=== PATIENT | male | born 1945 | race Asian ===

== ENCOUNTER → 2024-06-28 13:35 | Outpatient (REF) | payer MEDICARE, BC, SELFPAY ==
[2024-06-28 14:36] LABS: % Basophils 0.7 % (0-2); % Eosinophils 6.5 % (0-6); % Immature Granulocytes 0.2 % (0-0.5); % Lymphocytes 22.7 % (20.5-51.1); % Monocytes 8.1 % (1.7-9.3); % Neutrophils 61.8 % (42.2-75.2); Absolute Eosinophils 0.4 10^3/uL (0-0.7); Absolute Lymphocytes 1.4 10^3/uL (1.2-3.4); Absolute Monocytes 0.5 10^3/uL (0.1-0.6); Absolute Neutrophils 3.7 10^3/uL (1.4-6.5); Hematocrit 37.1 % (39.0-52.0); Hemoglobin 11.9 g/dL (13.0-18.0); Mean Corp Hgb Conc. 32.1 g/dL (33.0-37.0); Mean Corpuscular Hgb 26.9 pg (27.0-31.0); Mean Corpuscular Volume 83.7 fL (80.0-94.0); Nucleated Red Blood Cells % 0 % (-); Platelet Count 155 10^3/uL (130-400); Red Blood Cell Count 4.43 10^6/uL (4.70-6.10); Red Cell Dist. Width 15.1 % (11.5-14.5)
[2024-06-28 15:01] LABS: HDL Cholesterol 56 mg/dl; LDL Cholesterol, Calculated 61 mg/dl; Total Cholesterol 132 mg/dl (50-199); Triglyceride 79 mg/dl (10-149); Very Low Density Lipoprotein 15 mg/dl (0-30)
[2024-06-29 09:46] LABS: Glycohemoglobin (HgbA1c) 6.3 % (4.0-5.6)
== END ==
LOC: OLABBH 13:35
PROVIDERS: ATTENDING PHYSICIAN Family Medicine
DX: E78.5 Hyperlipidemia, unspecified (principal); E11.8 Type 2 diabetes mellitus with unspecified complications; R93.1 Abnormal findings on diagnostic imaging of heart and coronary circulation; I25.10 Atherosclerotic heart disease of native coronary artery without angina pectoris; J10.00 Influenza due to other identified influenza virus with unspecified type of pneumonia; I63.9 Cerebral infarction, unspecified
CPT/HCPCS: 36415; 80061; 83036; 85025

== ENCOUNTER → 2024-07-20 08:00 | Outpatient (REF) | payer MEDICARE, BC, SELFPAY ==
[2024-07-20 17:25] LABS: Urine Albumin 3+ (Neg - Trace); Urine Bilirubin Negative (Negative); Urine Character Clear (Clear); Urine Color Yellow; Urine Glucose Negative (Negative); Urine Ketone Negative (Negative); Urine Leukocyte 1+ (Negative); Urine Nitrite Negative (Negative); Urine Occult Blood Negative (Negative); Urine Specific Gravity 1.015 (<1.030); Urine Urobilinogen Negative (Neg - 1+); Urine pH 6.5 (5.0-9.0)
[2024-07-20 17:32] LABS: Urine Calcium Oxalate Crystals Present; Urine Mucus Few; Urine Red Blood Cell 0-2 /HPF (0-2); Urine Squamous Cell 0-2 /LPF (Few)
[2024-07-20 17:33] LABS: Urine Bacteria Moderate (Negative)
== END ==
LOC: OLABBH 08:00
PROVIDERS: ATTENDING PHYSICIAN Family Medicine
DX: N39.0 Urinary tract infection, site not specified (principal)
CPT/HCPCS: 81003; 81015; 87086

== ENCOUNTER 2024-09-09 23:46 | Observation (INO) | payer MEDICARE, BC, SELFPAY ==
[2024-09-09 19:53] VITALS: BP 121/67
[2024-09-09 19:56] VITALS: BP 121/67
[2024-09-09 20:00] VITALS: BP 114/69
[2024-09-09 20:26] LABS: Hematocrit 35.1 % (39.0-52.0); Hemoglobin 11.7 g/dL (13.0-18.0); Mean Corp Hgb Conc. 33.3 g/dL (33.0-37.0); Mean Corpuscular Volume 83.2 fL (80.0-94.0); Nucleated Red Blood Cells % 0 % (-); Platelet Count 180 10^3/uL (130-400); Red Cell Dist. Width 13.8 % (11.5-14.5)
--- NOTE | 2024-09-09 20:36 | ED.GENMED ---
History of Present Illness
General
Chief Complaint: Change Level of Consciousness
Time Seen by Provider: 09/09/24 20:27
History of Present Illness
History of Present Illness:
Patient presents to the emergency department with altered mental status. He is a 79-year-old male with a history of dementia, prior intracranial hemorrhage, seizures, who presents after change in mental status. He was in his baseline state of
health, sitting with his friends at the [facility], when he suddenly slumped over to the side and started drooling. There is no shaking. Patient was staring off into space. His notes this is how he was during a prior seizure. He has
had 2 seizures since his intracranial hemorrhage last year. He is on Keppra 250 mg in the morning and 500 mg at night. There is been no change to his medications otherwise. Patient is confused and unable to provide any history
Phy Exam
Physical Exam
Physical Exam:
GENERAL APPEARANCE: Chronically ill-appearing
EYES lids/conjunctiva normal
EARS/NOSE/THROAT tacky mucous membranes
HEAD/NECK normocephalic atraumatic, neck is supple.
RESPIRATORY respiratory effort normal, speaks in full sentences, no accessory muscle use. Lungs clear to auscultation without rhonchi, wheezes, rales
CARDIAC Regular rate and rhythm, no edema.
ABDOMINAL Soft, ND/NT. No pulsatile masses on exam, rebound tenderness, Rashid sign or pain over Mcburney's point.
MUSCLES/EXTREMITIES No abnormal range of motion, no swelling.
SKIN Warm, pink and dry. No rashes
NEUROLOGICAL he is awake but tired, easily arousable. Patient moves all extremities. There is no facial droop. Patient is not oriented.
Course
Orders/Labs/Results
Orders:
Orders
09/09/24 20:00
EKG [Electrocardiogram (*1)] Urgent
Reason for Study: Syncope
EKG- Treatment ONCE
09/09/24 20:18
CMP [Comprehensive Metabolic Panel] Urgent
Complete Blood Count/With Diff Urgent
09/09/24 20:35
Urinalysis Reflex To Culture Urgent
0.9% Sodium Chloride 1000 ml [Nss] 1,000 ml IV BOLUS
Levetiracetam Injectable [Keppra] 1,000 mg IV NOW STA
09/09/24 20:36
CT Head W/o Iv Contrast Urgent
Comment:
Reason For Exam: altered mental status
Abnormal Lab Results
09/09/24
20:18
RBC 4.22 L 10^6/uL
(4.70-6.10)
Hgb 11.7 L g/dL
(13.0-18.0)
Hct 35.1 L %
(39.0-52.0)
MPV 11.0 H fL
(7.4-10.4)
Absolute Monos (auto) 0.7 H 10^3/uL
(0.1-0.6)
Glucose 157 H mg/dl
(70-99)
Alkaline Phosphatase 36 L U/L
(38-126)
Total Protein 5.8 L g/dl
(6.3-8.2)
09/09/24 20:18
09/09/24 20:18
Vital Signs
Initial and Last Documented VS:
Initial Vital Signs
Temp Pulse Resp BP Pulse Ox
97.8 F 73 18 121/67 96
09/09/24 19:53 09/09/24 19:53 09/09/24 19:53 09/09/24 19:53 09/09/24 19:53
Last Documented Vital Signs
Temp Pulse Resp BP Pulse Ox
97.8 F 81 18 114/69 99
09/09/24 19:53 09/09/24 22:45 09/09/24 22:57 09/09/24 20:00 09/09/24 22:45
*Pulse Oximetry
SaO2: 96
Oxygen Mode of Delivery: Room air
Patient hypoxic: no
*Critical Care Note
Total Time (30-74mins, 75-104mins- exclusive of procedures): Not Applicable
ED Attending Note
ED Attending Note
ED Attending Note:
Patient with a history of intracranial hemorrhage, seizures, dementia presents with altered mental status with acute episode of unresponsiveness. notes this is similar to prior seizure though there was no shaking. He did appear to be
postictal on arrival. He had some improvement in his mental status while in the emergency department but not back to baseline. Labs and head CT are reassuring. Will keep for observation. Given IV antiepileptic. No evidence of infection or
meningitis clinically.
-
Portions of this chart may have been created with voice recognition software.� Occasional wrong word or��sound alike� substitutions may have occurred due to the inherent limitations of voice recognition software.
Discharge Plan
Departure
Patient Disposition: Admit
Date of Disposition: 09/09/24
Time of Disposition: 22:21
Presentation/result/management discussed w/ accepting MD/DO: Hospitalist
Discharge Problem:
Seizure, Acute alteration in mental status
Prescriptions:
No Action
metformin 500 mg Tablet
500 mg PO BID
loperamide 2 mg Capsule
2 mg PO Q4H PRN (Reason: loose stools)
levetiracetam 250 mg Tablet
250 mg PO DAILY
levetiracetam 250 mg Tablet
500 mg PO HS
ascorbate calcium (vitamin C) 500 mg Tablet
100 mg PO USEASDIRECTD
Rx Instructions:
Take every MWF
calcium carbonate [Calcium Antacid] 200 mg calcium (500 mg) Tablet,Chewable
400 mg PO Q4 PRN (Reason: upset stomach )
losartan 25 mg Tablet
25 mg PO DAILY PRN (Reason: SBP>150)
Rx Instructions:
Take daily when SBP is over 150
mirtazapine 15 mg Tablet
7.5 mg PO HS
rosuvastatin 20 mg Tablet
20 mg PO DAILY
cholecalciferol (vitamin D3) [Vitamin D3] 25 mcg (1,000 unit) Tablet
25 mcg PO USEASDIRECTD
Rx Instructions:
Take every MWF
Vitamin B12
5,000 mcg PO USEASDIRECTD
Rx Instructions:
Take every MWF
Referrals:
UNKNOWN - PT DOES,NOT KNOW [Family Provider]
Interventions
Interventions:
*Risk Screen - Suicide Last Done: 09/09/24 21:39
*General Assessment Last Done: 09/09/24 19:53
*Neglect/Abuse Screening Last Done: 09/09/24 19:53
*ED- Fall Risk Assessment Last Done: 09/09/24 20:01
*ED COVID-19 Vaccine History Last Done: 09/09/24 19:53
ED- Cardiac Assessment Last Done: 09/09/24 22:16
ED- Neurological Assessment Last Done: 09/09/24 22:16
ED-Psychological Assessment Last Done: 09/09/24 22:16
ED- Pulmonary Assessment Last Done: 09/09/24 22:16
Discharge Date and Time
Print Language: BELARUSIAN
[2024-09-09 20:54] LABS: ALT (SGPT) 14 U/L (0-50); AST (SGOT) 19 U/L (17-59); Albumin 3.7 g/dl (3.5-5.0); Alkaline Phosphatase 36 U/L (38-126); Blood Urea Nitrogen 19 mg/dl (9-20); Calcium 9.5 mg/dl (8.4-10.2); Carbon Dioxide 26 mmol/L (22-30); Chloride 100 mmol/L (98-107); Glucose 157 mg/dl (70-99); Potassium 3.7 mmol/L (3.5-5.1); Sodium 135 mmol/L (135-145); Total Protein 5.8 g/dl (6.3-8.2); eGFR > 60.00
[2024-09-09] MEDS: KEPPRA 1000 MG IV (21:01)
[2024-09-09] MEDS: NSS 1000 IV (21:01)
[2024-09-09 23:00] VITALS: BP 128/81
--- NOTE | 2024-09-09 23:21 | HPS.HSE ---
Family Physician
-
Family Physician: NOT KNOW UNKNOWN - PT DOES
Chief Complaint
-
Altered mental status
History of Present Illness
This is a 79-year-old with past medical history of intracranial hemorrhage, CVA, dementia, seizures, hyperlipidemia, wnm-tqabwng-zirgvuoed diabetes who presents from senior care facility for episode of unresponsiveness.
He was sitting outside with a group of friends when he suddenly slumped over to the side and staring off into space unresponsive. There was no shaking. There was no bowel incontinence. He was found with wet underwear on arrival in the emergency
department. Thereafter he seems to have some mental depression consistent with a postictal state. Spouse reported that he had similar prior episodes of seizures but reports that had 2 prior episode where his somnolent but arousable.
Here in the emergency department the patient is arousable, blood pressure is 114/69 temperature 91.8 pulse 81 satting 99% on room air. ECG shows sinus rhythm for degree AV block at a rate of [address] or T wave changes. CT of the
head was nonacute.
CBC was reassuring without any acute changes. Electrolytes were all normal. BUN/creatinine were normal. LFTs normal. Was normal.
Medical History
Past Medical History
Past Medical History: Reports Dementia, NIDDM and Seizures
Past Surgical History: Reports Other
Social History
Tobacco: Non-smoker
Alcohol: None
Drug: None
Living: Shelter
Family History
Family History: Not pertinent
Allergies / Home Medications
Allergies reflects when Allergies were last updated in [employer].
Home Medications with original date entered in [employer]
Allergy/Medication List:
Allergies
Allergy/AdvReac Type Severity Reaction Status Date / Time
atorvastatin Allergy Unknown Verified 09/09/24 20:13
buspirone Allergy Unknown Verified 09/09/24 20:13
donepezil (From Aricept) Allergy Unknown Verified 09/09/24 20:13
metoprolol Allergy Unknown Verified 09/09/24 20:13
sertraline Allergy Unknown Verified 09/09/24 20:13
Home Medications
Vitamin B12 5,000 mcg PO USEASDIRECTD 09/09/24
ascorbate calcium (vitamin C) 500 mg tablet 100 mg PO USEASDIRECTD 09/09/24
calcium carbonate (Calcium Antacid) 400 mg PO Q4 PRN upset stomach 09/09/24
cholecalciferol (vitamin D3) 25 mcg (1,000 unit) tablet (Vitamin D3) 25 mcg PO USEASDIRECTD 09/09/24
levetiracetam 250 mg tablet 250 mg PO DAILY 09/09/24
levetiracetam 250 mg tablet 500 mg PO HS 09/09/24
loperamide 2 mg capsule 2 mg PO Q4H PRN loose stools 09/09/24
losartan 25 mg tablet 25 mg PO DAILY PRN SBP>150 09/09/24
metformin 500 mg tablet 500 mg PO BID 09/09/24
mirtazapine 15 mg tablet 7.5 mg PO HS 09/09/24
rosuvastatin 20 mg tablet 20 mg PO DAILY 09/09/24
Review of Systems
-
Unable to obtain full review of systems at this time due to: Dementia
Physical Exam
Vital Signs
Vital Signs
Temp Pulse Resp BP Pulse Ox
97.8 F 81 18 114/69 99
09/09/24 19:53 09/09/24 22:45 09/09/24 22:57 09/09/24 20:00 09/09/24 22:45
Physical Exam
General: No Apparent Distress
HEENT: NormoCephalic, Moist mucous membranes and Atraumatic
Respiratory: Clear
Cardiac: S1/S2 and Regular Rhythm; No Murmur or Rub
GI: Soft, Non Tender, Non Distended and Normal Bowel Sounds; No Organomegaly
Rectal: Deferred by Provider
Musculoskeletal: No Clubbing, No Cyanosis and No Edema
Skin: No Rash
Neuro: Nonfocal/grossly intact and Other (Arousable, responds to name and able to say he is name. He is able to respond and say does not remember many things and does not remember where he is currently. He can follow simple commands.); No Oriented
Hematologic/Lymphatic: No Lymphadenopathy
Psych: Calm
Laboratory Results
-
09/09/24 20:18
09/09/24 20:18
Laboratory Results
Total Bilirubin 0.3 mg/dl (0.2-1.3) 09/09/24 20:18
AST 19 U/L (17-59) 09/09/24 20:18
ALT 14 U/L (0-50) 09/09/24 20:18
Alkaline Phosphatase 36 U/L (38-126) L 09/09/24 20:18
Data Reviewed
-
CT Scan: Report Reviewed by me
Medical Tests (Nuc Med, Echo, EKG etc): Image Personally Visualized and interpreted
Lab Data: Labs Reviewed by me
Old Records: Reviewed
Impression/Plan
-
IMPRESSION:
79-year-old with history of seizures on Keppra, history of intracranial hemorrhage, CVA, depression who presents to the emergency department following episode of unresponsiveness. Patient slumped in his chair and became unresponsive staring into
the distance. Since then he has been more sedated with an apparent postictal presentation. There was no obvious for bladder or bowel incontinence. There was no shaking. He is currently easily arousable and can follow very simple commands which
is similar to his baseline. He still somewhat somnolent but spouse reports that he usually goes to bed at this time. His labs are reassuring. CT of the head shows nothing acute. Urine is pending. There was no changes in medications to prompt
changes in his seizure threshold. No history of cardiac disease and not on any specific cardiac medications concerning for syncope. No signs of acute infection.
PLAN:
Unresponsiveness -suspect had a possible seizure with postictal state vs syncopal episode but not currently in status. He is sleepy but easily aroused and responds to commands. No acute intracranial process. Known h/o seizures.
- admit to telemetry observation for syncope
- s/p IV keppra in ED, continue oral keppra 500 hs, 250 daily
- lorazepam prn generalized seizure
- Known seizure and no evidence of status, hold off on EEG for now
- u/a pending
- check orthostatics in am
- s/p IV fluids, continue home antihypertensives
DVT PPX - lovenox sq
Code status - DNR
[2024-09-10] VITALS: BP 167/84
[2024-09-10 00:28] LABS: Urine Character Clear (Clear)
[2024-09-10 01:20] VITALS: BP 164/92
--- NOTE | 2024-09-10 02:04 | PTCARENOTE ---
Pt arrived to floor via stretcher from the ED. Pt arousable to voice, AAox1- able to answer simple questions without difficulty. Pt very drowsy and lethargic. Pt unable to recall reason for hospitalization. Pt denies any complaints of pain or
discomfort. HR in the 90's in NSR with first degree AV block on the monitor. POX 97% on RA. lungs dec t/o. Upon arrival to floor pt had #21CC in place, visibly extremely too small for pt with only the top on penis shoved into CC, with noted
discoloration to tip of penis. CC removed, skin tear noted in foreskin. NO CC in place at this time. Pt inc of bowel, deandra care provided. Right AC INT capped. Pt positioned per comfort. Bed alarm in place. Call hawkins in reach. Will continue to
monitor.
[2024-09-10 03:57] VITALS: BP 134/87
[2024-09-10 07:12] VITALS: BP 166/90
[2024-09-10] MEDS: KEPPRA 250 MG PO (07:52)
[2024-09-10] MEDS: GLUCOPHAGE 500 MG PO (07:52)
[2024-09-10] MEDS: CRESTOR 20 MG PO (07:52)
[2024-09-10] MEDS: NOVOLOG FLEXPEN-LOW RESISTANCE SC (07:54)
[2024-09-10 07:55] LABS: Glucose - Point of Care 99 mg/dl (70-99)
[2024-09-10 08:36] VITALS: BP 134/93; BP 138/83; BP 157/88; PULSE 79; PULSE 88; PULSE 93
[2024-09-10 09:00] LABS: Blood Urea Nitrogen 14 mg/dl (9-20); Calcium 9.2 mg/dl (8.4-10.2); Carbon Dioxide 27 mmol/L (22-30); Chloride 103 mmol/L (98-107); Glucose 102 mg/dl (70-99); Potassium 4.4 mmol/L (3.5-5.1); Sodium 136 mmol/L (135-145); eGFR > 60.00
[2024-09-10 09:17] LABS: Hematocrit 36.7 % (39.0-52.0); Hemoglobin 12.2 g/dL (13.0-18.0); Mean Corp Hgb Conc. 33.2 g/dL (33.0-37.0); Mean Corpuscular Volume 82.8 fL (80.0-94.0); Red Cell Dist. Width 13.7 % (11.5-14.5)
--- NOTE | 2024-09-10 09:45 | PTCARENOTE ---
pt awake. responds to name. answering simple question. states no to pain. able to move all ext. oriented to self knows he is in a hospital
--- NOTE | 2024-09-10 10:50 | W.PN.HOSP.TC ---
Addendum entered and electronically signed by Terry Dias DO 09/10/24 11:10:
I spoke with neurologist Dr Kenny, okay to discharge today. Outpatient follow-up.
Original Note:
Today's Communication/Plan
-
Neurology consult
Assessment / Plan
Assessment / Plan
Gen-awake, alert, NAD
HEENT-NC, AT, anicteric, clear oral mm
Neck-supple
CV-reg, no M, +S1/S2
Lungs-clear B/L
Abd-soft, NT, ND
Ext-no edema
Musculoskeletal-no cyanosis, clubbing
Skin-warm and dry
Neuro-grossly non-focal
Psych-calm, cooperative
Acute encephalopathy -differential diagnosis of seizure recurrence versus other etiology. Episode of slumping over to the side, drooling, staring off into space.
Mental status appears back to baseline.
CT head on admission negative.
Will consult neurology.
History of seizures -after ICH. On Keppra 250 mg daily, 500 mg nightly.
History of ICH
DM2 without hyperglycemia -on metformin prior to admission.
Glucose 102 this morning.
Essential hypertension -blood pressure elevated this morning. Will resume losartan.
hyperlipidemia -rosuvastatin.
Dementia
DNR
updated at the bedside.
Anticipated Discharge: Within 24 hours
Subjective/Interval History
-
Date of Service: September 10, 2024
Patient seen and examined. No complaints.
Objective Data
-
Labs:
Laboratory Results
09/10/24
07:36
WBC 7.9
Hgb 12.2 L
Hct 36.7 L
Plt Count
Sodium 136
Potassium 4.4
Chloride 103
Carbon Dioxide 27
BUN 14
Creatinine 0.6 L
Glucose 102 H
Calcium 9.2
Vital Signs:
Vital Signs
Temp Pulse Resp BP Pulse Ox
97.6 F 82 14 166/90 100
09/10/24 07:12 09/10/24 07:12 09/10/24 07:12 09/10/24 07:12 09/10/24 07:12
I&O
09/09/24 09/10/24 09/11/24
06:59 06:59 06:59
Intake Total 1000 / 1000
Output Total 400 / 400
Balance 600 / 600
Review of Systems
-
Unable to obtain full review of systems at this time due to: Dementia
History Source: Patient
All other systems: Reviewed and negative
--- NOTE | 2024-09-10 10:53 | CON.NEURO ---
Neuro Assessment/Plan
Assessment
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
Plan
Maintain levetiracetam 250 mg in the morning and 500 mg at bedtime
Initiate lamotrigine 25 mg twice a day as the patient has been intolerant to higher doses of levetiracetam
No indication at this time patient would benefit from EEG
May check orthostatic blood pressures to ensure no variability which might be producing some symptomatology
Will follow as needed. Patient should follow with his usual outpatient neurologist.
Consultation
Order
Date of Consultation: 09/10/24
Requesting Provider: Hospitalist
Reason for Consult: Seizure
Subjective/Objective
Subjective Data
Date of Service: September 10, 2024
Patient presented to this hospital's emergency department from his [facility] with an episode of recurrent, observed, change in mental status with the patient staring then becoming unresponsive. The patient did lose control of bladder but
not of bowel. There is no evidence of tongue biting at the time. Patient has a longstanding history of seizures for which she is evaluated by an outside neurologist. Prior dosing of levetiracetam produced agitation for which the patient had a
reduction in dosing. No known modifying factors to the patient's event.
The patient previously was diagnosed with dementia presumed to be secondary to alcohol overexposure.
We have no outside records for corroboration. Patient's history is entirely obtained after review of the patient's medical records and discussion with his at bedside. Patient himself is unable to provide his own medical history.
Objective Data
Vital Signs
Temp Pulse Resp BP Pulse Ox
36.4 C 82 14 166/90 100
09/10/24 07:12 09/10/24 07:12 09/10/24 07:12 09/10/24 07:12 09/10/24 07:12
Lab Results
09/10/24 07:36
09/10/24 07:36
Sodium 136 mmol/L (135-145) 09/10/24 07:36
Potassium 4.4 mmol/L (3.5-5.1) 09/10/24 07:36
BUN 14 mg/dl (9-20) 09/10/24 07:36
Glucose 102 mg/dl (70-99) H 09/10/24 07:36
Calcium 9.2 mg/dl (8.4-10.2) 09/10/24 07:36
Patient Allergies
atorvastatin Allergy (Verified 09/09/24 20:13)
Unknown
buspirone Allergy (Verified 09/09/24 20:13)
Unknown
donepezil (From Aricept) Allergy (Verified 09/09/24 20:13)
Unknown
metoprolol Allergy (Verified 09/09/24 20:13)
Unknown
sertraline Allergy (Verified 09/09/24 20:13)
Unknown
Review of Systems
-
Unable to obtain full review of systems at this time due to: Dementia
History Source: Patient
All other systems: Reviewed and negative
Physical Exam
-
General: No Apparent Distress and Appears Stated Age
Eyes: Round OU, Gumlog Conjunctivae and No Ptosis
HEENT: Anicteric and Moist Mucous Membranes
Neck: Full Range of Motion
Respiratory: No Dyspnea
Cardiac: No JVD
GI: Non-distended
Skin: Unremarkable
Extremities: No Clubbing, No Cyanosis and No Edema
Psych: Negative Intact Judgement/Insight
Extended Neurological Exam
Mood & Affect: Mood Unremarkable and Affect Unremarkable
Attention Span & Concentration: Awake, Alert and Interactive
Tremor: Hand Tremor Absent and Head Tremor Absent
Speech: Quality Unremarkable and Quantity Unremarkable
Cranial Nerve II: Left Eye: Pupillary Size Unremarkable and Visual Cardona Grossly Intact
Cranial Nerve II: Right Eye: Pupillary Size Unremarkable and Visual Cardona Grossly Intact
Cranial Nerves III, IV, : Extraocular Movement: Grossly Intact
Cranial Nerve VII: Facial Symmetry: Normal Facial Symmetry
Cranial Nerve VIII: Hearing: Unremarkable Hearing to Normal Conversational Volume
Cranial Nerve XI: Shoulder Shrug: Unremarkable
Touch Sensation: Unremarkable
Gait & Station: Unable to Assess
Data Reviewed
-
CT Head: Report Reviewed
Labs: Report Reviewed
Reviewed with: Physician and Family
Old Records: Summarized
Medications
-
Active Medications
Generic Name Dose Route Start Last Admin
Trade Name Freq PRN Reason Stop Dose Admin
Acetaminophen 650 mg 09/10/24 01:03
Acetaminophen 325 Mg Tablet PO 10/08/24 01:02
Q4HPRN PRN
mild pain/PEREZ/temp> 100.4F
Bisacodyl 10 mg 09/10/24 01:03
Bisacodyl 10 Mg Rectal Suppository RECTAL 10/08/24 01:02
[id number] PRN
constipation
Dextrose 12.5 grams 09/10/24 02:00
Dextrose 50% (0.5 Grams/Ml) 50 Ml Syringe IV 10/08/24 01:59
[id number] PRN
hypoglycemia
Protocol
Enoxaparin Sodium 40 mg 09/10/24 18:00
Enoxaparin Sodium 40 Mg/0.4 Ml Syringe SC 10/08/24 17:59
QPM REGINA
Glucagon 1 mg 09/10/24 02:00
Glucagon 1 Mg Vial IM 10/08/24 01:59
PRN PRN
hypoglycemia - no IV access
Protocol
Insulin Aspart 0 units 09/10/24 07:30 09/10/24 07:54
Insulin Aspart Low Resistance 300 Units/3 Ml Pen.Injctr SC 10/08/24 07:29 Not Given
AC REGINA
Protocol
Levetiracetam 250 mg 09/10/24 08:00 09/10/24 07:52
Levetiracetam 250 Mg Regular Release Tablet PO 10/08/24 07:59 250 mg
DAILY REGINA Administration
Levetiracetam 500 mg 09/10/24 22:00
Levetiracetam 250 Mg Regular Release Tablet PO 10/08/24 21:59
HS REGINA
Loperamide HCl 2 mg 09/10/24 01:03
Loperamide 2 Mg Capsule PO 10/08/24 01:02
Q4H PRN
loose stools
Losartan Potassium 25 mg 09/10/24 01:03
Losartan 25 Mg Tablet PO 10/08/24 01:02
DAILY PRN
SBP>150
Metformin HCl 500 mg 09/10/24 08:00 09/10/24 07:52
Metformin 500 Mg Regular Release Tablet PO 10/08/24 07:59 500 mg
BID AT 0800,1700 REGINA Administration
Mirtazapine 7.5 mg 09/10/24 22:00
Mirtazapine 7.5 Mg Regular Release Tablet PO 10/08/24 21:59
HS REGINA
Ondansetron HCl 4 mg 09/10/24 01:03
Ondansetron 4 Mg/2 Ml Vial IV 10/08/24 01:02
Q6HPRN PRN
nausea and vomiting
Polyethylene Glycol 17 grams 09/10/24 01:03
Polyethylene Glycol Powder 17 Grams Packet PO 10/08/24 01:02
DAILYPRN PRN
constipation
Rosuvastatin Calcium 20 mg 09/10/24 08:00 09/10/24 07:52
Rosuvastatin (Crestor) 20 Mg Tablet PO 10/08/24 07:59 20 mg
DAILY REGINA Administration
Senna/Docusate Sodium 1 tablet 09/10/24 01:03
Docusate W/Senna (Lauren-Colace) Tablet PO 10/08/24 01:02
BIDPRN PRN
constipation
Sodium Chloride 0 flush 09/10/24 02:00
Sodium Chloride 0.9% (Flush) Syringe IV 10/08/24 01:59
PER PROTOCOL REGINA
Home Medications
�Medication �Instructions �Recorded
Vitamin B12 5,000 mcg PO USEASDIRECTD 09/09/24
Supplement
ascorbate calcium (vitamin C) 500 100 mg PO USEASDIRECTD Supplement 09/09/24
mg tablet
calcium carbonate (Calcium Antacid) 400 mg PO Q4 PRN upset stomach 09/09/24
cholecalciferol (vitamin D3) 25 25 mcg PO USEASDIRECTD Supplement 09/09/24
mcg (1,000 unit) tablet (Vitamin
D3)
levetiracetam 250 mg tablet 250 mg PO DAILY Seizures 09/09/24
levetiracetam 250 mg tablet 500 mg PO HS Seizures 09/09/24
loperamide 2 mg capsule 2 mg PO Q4H PRN loose stools 09/09/24
losartan 25 mg tablet 25 mg PO DAILY PRN SBP>150 09/09/24
metformin 500 mg tablet 500 mg PO BID Diabetes 09/09/24
mirtazapine 15 mg tablet 7.5 mg PO HS Neurological Condition 09/09/24
rosuvastatin 20 mg tablet 20 mg PO DAILY High Cholesterol 09/09/24
Past History
Past History
ED Past Medical History: Hypercholesterolemia, Seizures and Other (dementia, COVID-19)
ED Past Surgical History: None
Social History
Alcohol: Chronic alcoholic
Personal:
Living: correction
Employment: Retired
Family History
Family History: Other (Reviewed and non-contributory)
--- NOTE | 2024-09-10 11:14 | W.DS.TRANS ---
DC Summary - Director Of Cardiology Service Line
-
Discharge Instructions:
Discharge Diagnosis/Procedures Recurrent seizures
Diet Diabetic, Carb Controlled
Activity As tolerated
Driving Restrictions No driving
Bathing Restrictions None
Instructions:
Stand-Alone Forms:
Changes to Home Medications: No
Discharge Medications:
DC Medications w/original date entered in [employer]
Vitamin B12 5,000 mcg PO USEASDIRECTD Supplement 09/09/24
ascorbate calcium (vitamin C) 500 mg tablet 100 mg PO USEASDIRECTD Supplement 09/09/24
calcium carbonate (Calcium Antacid) 400 mg PO Q4 PRN upset stomach 09/09/24
cholecalciferol (vitamin D3) 25 mcg (1,000 unit) tablet (Vitamin D3) 25 mcg PO USEASDIRECTD Supplement 09/09/24
levetiracetam 250 mg tablet 250 mg PO DAILY Seizures 09/09/24
levetiracetam 250 mg tablet 500 mg PO HS Seizures 09/09/24
loperamide 2 mg capsule 2 mg PO Q4H PRN loose stools 09/09/24
losartan 25 mg tablet 25 mg PO DAILY PRN SBP>150 09/09/24
metformin 500 mg tablet 500 mg PO BID Diabetes 09/09/24
mirtazapine 15 mg tablet 7.5 mg PO HS Neurological Condition 09/09/24
rosuvastatin 20 mg tablet 20 mg PO DAILY High Cholesterol 09/09/24
lamotrigine 25 mg tablet 25 mg PO BID 14 days #60 tabs 09/10/24
Home Medication Changes
Pending Results: No
[2024-09-10 11:23] VITALS: BP 153/56
--- NOTE | 2024-09-10 11:50 | CM ---
Alert awake confused patient that lives at [facility] . Spoke with at bedside she said he lives at [facility] with assisted living. He uses [facility]. Spoke with Anna [facility] RN she is aware he had med changes and will be returning
today. She said they have no van service today.Pt confused and needs ambulance . Medical nec form completed.As per [facility] pharmacy is [facility] [place] . notified pharmacy changed to preferred.
SIBLEY letter reviewed with .TOÑITO signed on chart. agrees with return to [facility].
[facility]
Pharmacy [facility] [place]
PCP Dr Bailey
PLAN return to [facility] report [phone]
[2024-09-10 11:56] LABS: Glucose - Point of Care 162 mg/dl (70-99)
[2024-09-10] MEDS: NOVOLOG FLEXPEN-LOW RESISTANCE 1 UNITS SC (13:02)
[2024-09-10] MEDS: LAMICTAL 25 MG PO (13:09)
== END 2024-09-10 15:15 | disposition home or self-care (01) ==
LOC: 4 EAST ACU 23:46
PROVIDERS: Emergency Medicine; ADMITTING PHYSICIAN Internal Medicine; ATTENDING PHYSICIAN Hospitalist; CONSULT PHYSICIAN Psychiatry & Neurology Neurology; EMERGENCY PHYSICIAN Emergency Medicine
DX: G93.49 Other encephalopathy (principal); R55 Syncope and collapse; R41.82 Altered mental status, unspecified; R56.9 Unspecified convulsions; F03.C3 Unspecified dementia, severe, with mood disturbance; F32.A Depression, unspecified; E11.65 Type 2 diabetes mellitus with hyperglycemia; I10 Essential (primary) hypertension; E78.00 Pure hypercholesterolemia, unspecified; Z79.84 Long term (current) use of oral hypoglycemic drugs; Z79.899 Other long term (current) drug therapy; Z88.8 Allergy status to other drugs, medicaments and biological substances; Z66 Do not resuscitate; Z86.73 Personal history of transient ischemic attack (TIA), and cerebral infarction without residual deficits; Z86.16 Personal history of COVID-19
CPT/HCPCS: 70450; 80048; 80053; 81003; 82962; 85025; 85027; 87070; 93005; 96360; 96374; 99285; G0378

== ENCOUNTER → 2024-11-14 11:36 | Outpatient (REF) | payer MEDICARE, BC, SELFPAY ==
[2024-11-14 13:21] LABS: Blood Urea Nitrogen 13 mg/dl (9-20); Calcium 8.8 mg/dl (8.4-10.2); Carbon Dioxide 29 mmol/L (22-30); Chloride 105 mmol/L (98-107); Glucose 96 mg/dl (70-99); Potassium 4.1 mmol/L (3.5-5.1); Sodium 137 mmol/L (135-145); eGFR > 60.00
[2024-11-14 13:53] LABS: Glycohemoglobin (HgbA1c) 6.2 % (4.0-5.6)
== END ==
LOC: OLABBH 11:36
PROVIDERS: ATTENDING PHYSICIAN Family Medicine
DX: E11.9 Type 2 diabetes mellitus without complications (principal)
CPT/HCPCS: 36415; 80048; 83036

== ENCOUNTER → 2024-11-29 11:14 | Outpatient (REF) | payer MEDICARE, BC, SELFPAY ==
[2024-11-29 13:10] LABS: Hematocrit 40.7 % (39.0-52.0); Hemoglobin 13.1 g/dL (13.0-18.0); Mean Corp Hgb Conc. 32.2 g/dL (33.0-37.0); Mean Corpuscular Volume 83.9 fL (80.0-94.0); Nucleated Red Blood Cells % 0 % (-); Platelet Count 35 10^3/uL (130-400); Red Cell Dist. Width 14.3 % (11.5-14.5)
== END ==
LOC: OLABBH 11:14
PROVIDERS: ATTENDING PHYSICIAN Family Medicine
DX: E11.9 Type 2 diabetes mellitus without complications (principal)
CPT/HCPCS: 36415; 85025

== ENCOUNTER → 2024-11-30 10:09 | Outpatient (REF) | payer MEDICARE, BC, SELFPAY ==
[2024-11-30 11:33] LABS: ALT (SGPT) 12 U/L (0-50); AST (SGOT) 19 U/L (17-59); Albumin 3.7 g/dl (3.5-5.0); Alkaline Phosphatase 39 U/L (38-126); Blood Urea Nitrogen 11 mg/dl (9-20); Calcium 9.3 mg/dl (8.4-10.2); Carbon Dioxide 27 mmol/L (22-30); Chloride 104 mmol/L (98-107); Glucose 106 mg/dl (70-99); Potassium 4.0 mmol/L (3.5-5.1); Sodium 133 mmol/L (135-145); Total Protein 6.0 g/dl (6.3-8.2); eGFR > 60.00
== END ==
LOC: OLABBH 10:09
PROVIDERS: ATTENDING PHYSICIAN Family Medicine
DX: E11.9 Type 2 diabetes mellitus without complications (principal)
CPT/HCPCS: 36415; 80053; 84425

== ENCOUNTER → 2024-12-11 11:55 | Outpatient (REF) | payer MEDICARE, BC, SELFPAY ==
[2024-12-11 13:34] LABS: Hematocrit 38.0 % (39.0-52.0); Hemoglobin 11.9 g/dL (13.0-18.0); Mean Corp Hgb Conc. 31.3 g/dL (33.0-37.0); Mean Corpuscular Volume 87.0 fL (80.0-94.0); Red Cell Dist. Width 14.7 % (11.5-14.5)
[2024-12-11 13:40] LABS: ALT (SGPT) 11 U/L (0-50); AST (SGOT) 18 U/L (17-59); Albumin 3.5 g/dl (3.5-5.0); Alkaline Phosphatase 37 U/L (38-126); Blood Urea Nitrogen 16 mg/dl (9-20); Calcium 9.2 mg/dl (8.4-10.2); Carbon Dioxide 30 mmol/L (22-30); Chloride 103 mmol/L (98-107); Glucose 105 mg/dl (70-99); Potassium 3.9 mmol/L (3.5-5.1); Sodium 137 mmol/L (135-145); Total Protein 5.7 g/dl (6.3-8.2); eGFR > 60.00
[2024-12-14 09:52] LABS: Vitamin B1, Whole Blood 127 nmol/L (70-180)
== END ==
LOC: OLABBH 11:55
PROVIDERS: ATTENDING PHYSICIAN Family Medicine
DX: E11.9 Type 2 diabetes mellitus without complications (principal)
CPT/HCPCS: 36415; 80053; 84425; 85027